=== PATIENT | male | born 1970 | race Native Hawaiian/Other Pacific Islander ===

== ENCOUNTER 2017-10-28 14:22 | Emergency (ER) | payer BC ==
[~2017-10-28] VITALS: Ht 167.6 cm; Wt 83.9 kg
[2017-10-28 15:18] VITALS: BP 112/80; TEMP 98.1
== END 2017-10-28 15:19 | disposition home or self-care (01) ==
LOC: ED 14:22
DX: H66.92 Otitis media, unspecified, left ear (principal); H60.92 Unspecified otitis externa, left ear
CPT/HCPCS: 99281

== ENCOUNTER 2018-09-24 10:04 | Outpatient (CLI) | payer BC | END 2018-09-25 05:48 | disposition home or self-care (01) | LOC: RAD 10:04 | DX: M25.562 Pain in left knee (principal); M25.511 Pain in right shoulder; M25.512 Pain in left shoulder ==

== ENCOUNTER 2018-10-16 08:29 | Outpatient (CLI) | payer BC | END 2018-10-16 23:59 | LOC: MRI 08:29 | DX: M75.41 Impingement syndrome of right shoulder (principal) ==